=== PATIENT | female | born 1970 | race African-American/Black ===

== ENCOUNTER 2016-07-27 12:47 | Emergency (ER) | payer MEDICAID, OTHER ==
[2016-07-27 13:13] VITALS: BP 144/98
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
--- NOTE | 2016-07-27 16:29 | RAD ---
INDICATION: Left knee pain COMPARISON: None TECHNIQUE: AP, lateral, tunnel, and sunrise views were obtained. FINDINGS: The bony structures, joint spaces, and soft tissues are normal for age. IMPRESSION: THE EXAMINATION IS NORMAL FOR AGE
--- NOTE | 2016-07-27 16:39 | RAD ---
INDICATION: Back pain COMPARISON: None TECHNIQUE: Routine PA, lateral, and oblique imaging was performed . FINDINGS: Bones: There are no acute bony findings. There are no significant osteoarthritic findings. Alignment: Normal Disc spaces: The disc spaces are well-maintained Soft tissues: There are no soft tissue abnormalities. IMPRESSION: THE EXAMINATION IS NORMAL FOR AGE.
== END 2016-07-27 17:24 | disposition home or self-care (01) ==
LOC: UCEAST 12:47
DX: M25.562 Pain in left knee (principal); S39.012A Strain of muscle, fascia and tendon of lower back, initial encounter; V49.59XA Passenger injured in collision with other motor vehicles in traffic accident, initial encounter; Y93.9 Activity, unspecified; Y92.9 Unspecified place or not applicable; Z88.6 Allergy status to analgesic agent; F17.210 Nicotine dependence, cigarettes, uncomplicated
CPT/HCPCS: 72110; 99212; G0463

== ENCOUNTER 2016-07-31 11:11 | Emergency (ER) | payer SELFPAY ==
[2016-07-31 12:56] VITALS: BP 183/97
[2016-07-31] MEDS ORDERED: Nicotine PATCH 7 MG/24 HR* PATCH TRANSDERM ONE (14:52)
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
[2016-07-31 15:33] LABS: BUN/Creatinine Ratio 16.3 (8-20); Calcium 9.8 mg/dL (8.6-10.3); EGFR African American 90.6 (>60); EGFR Non-African American 70.4 (>60); Potassium 3.4 mmol/L (3.5-5.0)
[2016-07-31] MEDS ORDERED: Iohexol 300* (CONTRAST) 10 ML SDV IV ONE (15:37)
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
== END 2016-07-31 16:30 | disposition home or self-care (01) ==
LOC: ED 11:11
DX: S29.012A Strain of muscle and tendon of back wall of thorax, initial encounter (principal); S39.012A Strain of muscle, fascia and tendon of lower back, initial encounter; M54.9 Dorsalgia, unspecified; M25.561 Pain in right knee; R51 Headache; V49.9XXA Car occupant (driver) (passenger) injured in unspecified traffic accident, initial encounter; Y93.9 Activity, unspecified; Y92.9 Unspecified place or not applicable
CPT/HCPCS: 36415; 70450; 71260; 72100; 72128; 80048; 99282; Q9967

== ENCOUNTER → 2016-10-14 13:43 | Emergency (ER) | payer MEDICAID ==
[2016-10-14 14:37] LABS: Hematocrit 45 % (35-47); Hemoglobin 14.6 g/dl (12.0-16.0); Mean Corpuscular HGB Conc 33 g/dl (31-36); Mean Corpuscular Hemoglobin 28 pg (27-31); Mean Corpuscular Volume 87 fL (80-97); Mean Platelet Volume 8 um3 (7.4-10.4); Red Blood Count 5.15 10^6/ul (4.0-5.4); Red Cell Distribution Width 15 % (10.5-15); White Blood Count 7.7 10^3/ul (3.5-10.8)
[2016-10-14 14:41] LABS: Urine Bacteria Absent (Absent); Urine Bilirubin Negative (Negative); Urine Glucose Negative (Negative); Urine Nitrite Negative (Negative)
[2016-10-14 14:46] LABS: Benzodiazepine Urine Screen None Detected (None Detect)
[2016-10-14 14:58] LABS: ALT 16 U/L (7-52); AST 24 U/L (13-39); Albumin 4.9 g/dL (3.2-5.2); Alkaline Phosphatase 59 U/L (34-104); Anion Gap 11 mmol/L (2-11); BUN/Creatinine Ratio 22.8 (8-20); Blood Urea Nitrogen 21 mg/dL (6-24); CO2 Carbon Dioxide 27 mmol/L (22-32); Calcium 10.7 mg/dL (8.6-10.3); Chloride 103 mmol/L (101-111); EGFR African American 83.8 (>60); EGFR Non-African American 65.2 (>60); Globulin 3.3 g/dL (2-4); Glucose 134 mg/dL (70-100); Potassium 3.5 mmol/L (3.5-5.0); Sodium 141 mmol/L (133-145); Total Protein 8.2 g/dL (6.4-8.9)
[2016-10-14 15:19] LABS: Acetaminophen < 15 mcg/mL; Alcohol < 10 mg/dL (<10); Salicylate < 2.50 mg/dL (<30)
[2016-10-14 15:27] LABS: TSH (Thyroid Stimulating Horm) 0.57 mcIU/mL (0.34-5.60)
[2016-10-14 17:18] VITALS: BP 173/91
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
== END | disposition home or self-care (01) ==
LOC: ED 13:43
DX: F32.9 Major depressive disorder, single episode, unspecified (principal); R45.851 Suicidal ideations; F17.210 Nicotine dependence, cigarettes, uncomplicated
CPT/HCPCS: 36415; 80053; 80307; 80320; 80329; 81003; 81015; 84443; 85025; 99284; G0480

== ENCOUNTER 2016-11-03 15:37 | Emergency (ER) | payer MEDICAID, OTHER ==
[2016-11-03 15:45] VITALS: BP 156/92
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
== END 2016-11-03 17:22 | disposition home or self-care (01) ==
LOC: UCEAST 15:37
DX: N76.6 Ulceration of vulva (principal); Z72.0 Tobacco use
CPT/HCPCS: 81003; 87070; 87529; 99212; G0463

== ENCOUNTER 2016-11-27 11:26 | Emergency (ER) | payer MEDICAID ==
[2016-11-27 13:28] VITALS: BP 110/70
--- NOTE | 2016-11-27 15:27 | UC ---
Neck Pain HPI - HPI Summary HPI Summary: Patient presents with neck pain which is chronic from 4 herniated discs, acute diarrhea and intermittent fevers. She states upon wakening her temp will be 101 , but dissipates quickly and she is OK throughout the day. She is tearful on exam and would like information for HIV testing. This is given to her upon discharge. She notes to trying to gain weight and has been drinking ensures frequently. She has not taken anything for the neck pain and her surgeon is Dr. White in [facility]. - History of Current Complaint Chief Complaint: UCGI Stated Complaint: fever, and diarrhea Time Seen by Provider: 11/27/16 13:52 Hx Obtained From: Patient Hx Last Menstrual Period: HYSTERECTOMY ?: No Onset/Duration Of Injury/Symptoms: Minutes Mechanism Of Injury: Blunt Trauma Timing: Constant Onset/Duration: Sudden Onset Severity: Moderate Pain Intensity: 6 Pain Scale Used: 0-10 Numeric Location: Discrete At: - C2-C7 Character: Dull, Aching Alleviating Factors: Nothing Associated Signs & Symptoms: Positive: Negative Related History: Previous Neck Injury - Risk Factors Meningitis Risk Factors: Negative Risk Factors For Cervical Spine Injury: Posterior Midline Cervical Spine Tenderness - Allergies/Home Medications Allergies/Adverse Reactions: Allergies Allergy/AdvReac Type Severity Reaction Status Date / Time Aspirin Allergy Swelling Verified 11/03/16 15:46 PMH/Surg Hx/FS Hx/Imm Hx Previously Healthy: Yes Other History Of: Negative For: HIV, Hepatitis B, Hepatitis C, Anticoagulant Therapy - Surgical History Surgical History: Yes Surgery Procedure, Year, and Place: HYSTERECTOMY-FULL. C5-6 ACDF-09/13/15. TUBES IN EARS - Family History Known Family History: Positive: None - denies heart disease, or dm, Other - BREAST CA, mom and dad of AIDS Negative: Cardiac Disease, Hypertension, Diabetes - Social History Occupation: Unemployed Lives: Alone Alcohol Use: None Substance Use Type: None Smoking Status (MU): Light Every Day Tobacco Smoker Amount Used/How Often: 3-5cig/day Review Of Systems Constitutional: Positive: Fever Skin: Positive: Negative Respiratory: Positive: Negative Cardiovascular: Positive: Negative Gastrointestinal: Positive: Diarrhea Musculoskeletal: Positive: Arthralgia Neurological: Positive: Negative Psychological: Positive: Anxious All Other Systems Reviewed And Are Negative: Yes Physical Exam Triage Information Reviewed: Yes Appearance: Well-Appearing, No Pain Distress, Well-Nourished Vital Signs: Initial Vital Signs Temp 98.6 F 11/27/16 11:29 Pulse 70 11/27/16 11:29 Resp 18 11/27/16 11:29 BP 120/78 11/27/16 11:29 Pulse Ox 100 11/27/16 11:29 Vital Signs Reviewed: Yes Eye Exam: Normal Eyes: Positive: Conjunctiva Clear Neck exam: Normal Neck: Positive: Supple, Nontender, No Lymphadenopathy Respiratory Exam: Normal Respiratory: Positive: Chest non-tender, Lungs clear Neurological Exam: Normal Neurological: Positive: Alert, Muscle Tone Normal Psychological Exam: Normal Psychological: Positive: Normal Response To Family, Age Appropriate Behavior Skin Exam: Normal Neck Pain Course/Dx - Course Course Of Treatment: Patient given information for HIV testing. Explained acute diarrhea most likely d/t beginning ensure several days ago. She is given flexeril for neck pain and mobic. Patient OK with discharge. - Differential Dx/Diagnosis Differential Dx/HQI/PQRI: Sprain, Strain, Trauma Provider Diagnoses: muscle strain Discharge - Discharge Plan Condition: Stable Disposition: HOME Prescriptions: Cyclobenzaprine TAB* [Flexeril TAB*] 10 mg PO BID PRN #15 tab PRN Reason: Pain Meloxicam [Mobic] 15 mg PO DAILY #30 tab Patient Education Materials: Acute Diarrhea (ED), Acute Neck Pain (ED) Referrals: Conrado Kruse MD [Medical Doctor] - Endy Uriarte DO [Primary Care Provider] - Additional Instructions: Follow [facility] with PCP [facility] I have given you a referral to Dr. Kruse for further evaluation of neck pain Moist heat to the area [facility] Address: [address] [place] [address]
== END 2016-11-27 14:28 | disposition home or self-care (01) ==
LOC: UCEAST 11:26
DX: S13.9XXA Sprain of joints and ligaments of unspecified parts of neck, initial encounter (principal); R19.7 Diarrhea, unspecified; R50.9 Fever, unspecified
CPT/HCPCS: 99212; G0463

== ENCOUNTER 2017-03-19 05:34 | Emergency (ER) | payer MEDICAID ==
[2017-03-19] MEDS ORDERED: Ondansetron INJ* 2 MG/ML VIAL IV ONE (06:18)
[2017-03-19] MEDS ORDERED: NS 0.9% 1000 ML* 2,000 ML IV ONE (06:19)
[2017-03-19 06:36] LABS: Hematocrit 42 % (35-47); Mean Corpuscular HGB Conc 34 g/dl (31-36); Mean Corpuscular Hemoglobin 30 pg (27-31); Mean Corpuscular Volume 89 fL (80-97); Mean Platelet Volume 8 um3 (7.4-10.4); Red Cell Distribution Width 14 % (10.5-15); White Blood Count 10.1 10^3/ul (3.5-10.8)
[2017-03-19 06:48] LABS: Urine Bacteria Absent (Absent); Urine Bilirubin Negative (Negative); Urine Glucose Negative (Negative); Urine Nitrite Negative (Negative)
[2017-03-19 06:49] LABS: Albumin 4.4 g/dL (3.2-5.2); BUN/Creatinine Ratio 16.3 (8-20); Calcium 9.9 mg/dL (8.6-10.3); EGFR African American 90.6 (>60); EGFR Non-African American 70.4 (>60); Globulin 2.9 g/dL (2-4); Magnesium 1.9 mg/dL (1.9-2.7); Potassium 3.4 mmol/L (3.5-5.0); Total Bilirubin 0.4 mg/dL (0.2-1.0); Total Protein 7.3 g/dL (6.4-8.9)
[2017-03-19 07:06] VITALS: BP 180/140
--- NOTE | 2017-03-19 07:40 | ED ---
Refugio Akers Rebecca, scribed for Rafiq Boyle MD on 03/19/17 at 0607 . Abdominal Pain/Female - HPI Summary HPI Summary: Pt is a 46 y/o F who presents to ED c/o abdominal pain. Sx began yesterday afternoon and have been constant and unchanging since onset. Prior to onset of pain, she had a roast beef sub which she ate really quickly. Pain is in the umbilical region and is currently severe, ranked 8/10. Pain stays localized to the same region. Sx aggravated by nothing, alleviated by belching. Additionally c/o N/V/D, citing 6 episodes of emesis and diarrhea every 30 minutes since onset. Denies dysuria, fever, blood in stool. - History of Current Complaint Chief Complaint: EDAbdPain Stated Complaint: VOMITIN, DIARRHEA Hx Obtained From: Patient Hx Last Menstrual Period: HYSTERECTOMY Onset/Duration: Lasting Days - Yesterday afternoon, Still Present Severity Currently: Severe Pain Intensity: 8 Pain Scale Used: 0-10 Numeric Location: Umbilical Radiates: No Aggravating Factor(s): Nothing Alleviating Factor(s): Other: - Belching Associated Signs and Symptoms: Positive: Nausea, Vomiting, Diarrhea. Negative: Fever, Blood in Stool, Urinary Symptoms Allergies/Adverse Reactions: Allergies Allergy/AdvReac Type Severity Reaction Status Date / Time Aspirin Allergy Swelling Verified 03/19/17 05:43 PMH/Surg Hx/FS Hx/Imm Hx Endocrine/Hematology History: Denies: Hx Anticoagulant Therapy, Hx Blood Disorders, Hx Diabetes, Hx Thyroid Disease, Hx Unexplained Bleeding Cardiovascular History: Reports: Hx Hypertension - No Meds Denies: Hx Congestive Heart Failure, Hx Deep Vein Thrombosis, Hx Myocardial Infarction, Hx Pacemaker/ICD Respiratory History: Denies: Hx Asthma, Hx Chronic Obstructive Pulmonary Disease (COPD), Hx Lung Cancer, Hx Pneumonia, Hx Pulmonary Embolism GI History: Denies: Hx Gall Bladder Disease, Hx Gastrointestinal Bleed, Hx Ulcer, Hx Urosepsis History: Denies: Hx Kidney Stones, Hx Renal Disease Musculoskeletal History: Reports: Hx Arthritis Neurological History: Denies: Hx Dementia, Hx Migraine, Hx Seizures, Hx Transient Ischemic Attacks (TIA) Psychiatric History: Reports: Hx Anxiety - She takes a, Hx Depression - She is not on medications for her mental health issues> Denies: Hx Schizophrenia, Hx Bipolar Disorder, Hx of Violent Episodes Against Others - Surgical History Surgery Procedure, Year, and Place: HYSTERECTOMY-FULL. C5-6 ACDF-09/13/15. TUBES IN EARS Infectious Disease History: No Infectious Disease History: Denies: Traveled Outside the [place] in Last 30 Days - Family History Known Family History: Positive: Other - BREAST CA, mom and dad of AIDS Negative: Cardiac Disease, Hypertension, Diabetes - Social History Alcohol Use: None Hx Substance Use: No Substance Use Type: Reports: None Hx Tobacco Use: Yes Smoking Status (MU): Light Every Day Tobacco Smoker Amount Used/How Often: 3-5cig/day Review of Systems Negative: Fever Positive: Abdominal Pain, Vomiting, Diarrhea, Nausea Positive: other - NEGATIVE: Blood in stool. Negative: dysuria All Other Systems Reviewed And Are Negative: Yes Physical Exam - Summary Physical Exam Summary: Appearance: Well-appearing, Well-nourished Skin: Warm, no rashes, no petechiae Eyes: Normal ENT: Normal, moist mucous membranes Neck: Supple, nontender Respiratory: Clear to auscultation Cardiovascular: Normal Abdomen: Soft, audi tenderness in the epigastrum, no rebound, mild voluntary guarding Bowel: Present Musculoskeletal: Normal, Strength/ROM Intact, no CVA tenderness, normal pulses in the radial and pedal areas bilaterally Neurological: Normal, A&Ox3 Psychiatric: Appears anxious Triage Information Reviewed: Yes Vital Signs On Initial Exam: Initial Vitals Temp Pulse Resp BP Pulse Ox 98.1 F 79 16 170/94 100 03/19/17 05:40 03/19/17 05:40 03/19/17 05:40 03/19/17 05:40 03/19/17 05:40 Vital Signs Reviewed: Yes - Ezequiel Coma Scale Coma Scale Total: 15 Diagnostics - Vital Signs Vital Signs Temp Pulse Resp BP Pulse Ox 03/19/17 05:40 98.1 F 79 16 170/94 100 - Laboratory Lab Results: Lab Results 03/19/17 03/19/17 03/19/17 Range/Units 06:10 06:10 06:10 WBC 10.1 (3.5-10.8) 10^3/ul RBC 4.70 (4.0-5.4) 10^6/ul Hgb 14.0 (12.0-16.0) g/dl Hct 42 (35-47) % MCV 89 (80-97) fL MCH 30 (27-31) pg MCHC 34 (31-36) g/dl RDW 14 (10.5-15) % Plt Count 221 (150-450) 10^3/ul MPV 8 (7.4-10.4) um3 Neut % (Auto) 67.0 (38-83) % Lymph % (Auto) 25.4 (25-47) % Russell % (Auto) 7.0 (1-9) % Eos % (Auto) 0.3 (0-6) % Baso % (Auto) 0.3 (0-2) % Absolute Neuts (auto) 6.8 (1.5-7.7) 10^3/ul Absolute Lymphs (auto) 2.6 (1.0-4.8) 10^3/ul Absolute Monos (auto) 0.7 (0-0.8) 10^3/ul Absolute Eos (auto) 0 (0-0.6) 10^3/ul Absolute Basos (auto) 0 (0-0.2) 10^3/ul Absolute Nucleated RBC 0.01 10^3/ul Nucleated RBC % 0.1 INR (Anticoag Therapy) 0.88 L (0.89-1.11) APTT 28.0 (26.0-36.3) seconds Sodium 139 (133-145) mmol/L Potassium 3.4 L (3.5-5.0) mmol/L Chloride 106 (101-111) mmol/L Carbon Dioxide 27 (22-32) mmol/L Anion Gap 6 (2-11) mmol/L BUN 14 (6-24) mg/dL Creatinine 0.86 (0.51-0.95) mg/dL Est GFR ( Amer) 90.6 (>60) Est GFR (Non-Af Amer) 70.4 (>60) BUN/Creatinine Ratio 16.3 (8-20) Glucose 123 H (70-100) mg/dL Calcium 9.9 (8.6-10.3) mg/dL Magnesium 1.9 (1.9-2.7) mg/dL Total Bilirubin 0.40 (0.2-1.0) mg/dL AST 17 (13-39) U/L ALT 15 (7-52) U/L Alkaline Phosphatase 60 (34-104) U/L C-Reactive Protein 1.00 (< 5.00) mg/L Total Protein 7.3 (6.4-8.9) g/dL Albumin 4.4 (3.2-5.2) g/dL Globulin 2.9 (2-4) g/dL Albumin/Globulin Ratio 1.5 (1-3) Amylase 55 (29-103) U/L Lipase 30 (11.0-82.0) U/L Beta HCG, Quant 4.77 mIU/mL Urine Color Urine Appearance Urine pH (5-9) Ur Specific [place] (1.010-1.030) Urine Protein (Negative) Urine Ketones (Negative) Urine Blood (Negative) Urine Nitrate (Negative) Urine Bilirubin (Negative) Urine Urobilinogen (Negative) Ur Leukocyte Esterase (Negative) Urine WBC (Auto) (Absent) Urine RBC (Auto) (Absent) Ur Squamous Epith Cells (Absent) Urine Bacteria (Absent) Urine Glucose (Negative) Blood Type Antibody Screen 03/19/17 03/19/17 Range/Units 06:10 06:10 WBC (3.5-10.8) 10^3/ul RBC (4.0-5.4) 10^6/ul Hgb (12.0-16.0) g/dl Hct (35-47) % MCV (80-97) fL MCH (27-31) pg MCHC (31-36) g/dl RDW (10.5-15) % Plt Count (150-450) 10^3/ul MPV (7.4-10.4) um3 Neut % (Auto) (38-83) % Lymph % (Auto) (25-47) % Russell % (Auto) (1-9) % Eos % (Auto) (0-6) % Baso % (Auto) (0-2) % Absolute Neuts (auto) (1.5-7.7) 10^3/ul Absolute Lymphs (auto) (1.0-4.8) 10^3/ul Absolute Monos (auto) (0-0.8) 10^3/ul Absolute Eos (auto) (0-0.6) 10^3/ul Absolute Basos (auto) (0-0.2) 10^3/ul Absolute Nucleated RBC 10^3/ul Nucleated RBC % INR (Anticoag Therapy) (0.89-1.11) APTT (26.0-36.3) seconds Sodium (133-145) mmol/L Potassium (3.5-5.0) mmol/L Chloride (101-111) mmol/L Carbon Dioxide (22-32) mmol/L Anion Gap (2-11) mmol/L BUN (6-24) mg/dL Creatinine (0.51-0.95) mg/dL Est GFR ( Amer) (>60) Est GFR (Non-Af Amer) (>60) BUN/Creatinine Ratio (8-20) Glucose (70-100) mg/dL Calcium (8.6-10.3) mg/dL Magnesium (1.9-2.7) mg/dL Total Bilirubin (0.2-1.0) mg/dL AST (13-39) U/L ALT (7-52) U/L Alkaline Phosphatase (34-104) U/L C-Reactive Protein (< 5.00) mg/L Total Protein (6.4-8.9) g/dL Albumin (3.2-5.2) g/dL Globulin (2-4) g/dL Albumin/Globulin Ratio (1-3) Amylase (29-103) U/L Lipase (11.0-82.0) U/L Beta HCG, Quant mIU/mL Urine Color Yellow Urine Appearance Clear Urine pH 6.0 (5-9) Ur Specific [place] 1.010 (1.010-1.030) Urine Protein Negative (Negative) Urine Ketones Negative (Negative) Urine Blood 2+ H (Negative) Urine Nitrate Negative (Negative) Urine Bilirubin Negative (Negative) Urine Urobilinogen Negative (Negative) Ur Leukocyte Esterase Negative (Negative) Urine WBC (Auto) Trace(0-5/hpf) (Absent) Urine RBC (Auto) Trace(0-2/hpf) (Absent) Ur Squamous Epith Cells Present H (Absent) Urine Bacteria Absent (Absent) Urine Glucose Negative (Negative) Blood Type B Positive Antibody Screen Negative Result Diagrams: 03/19/17 06:10 03/19/17 06:10 Lab Statement: Any lab studies that have been ordered have been reviewed, and results considered in the medical decision making process. Abdominal Pain Fem Course/Dx - Course Course Of Treatment: feels better after meds, instructed to fu with pmd. agrees to and understnad dc instructions - Diagnoses Provider Diagnoses: Diarrhea Discharge - Discharge Plan Condition: Improved Disposition: HOME Prescriptions: Ondansetron ODT TAB* [Zofran 4 MG Odt TAB*] 4 mg PO Q6H PRN #12 tab.odt PRN Reason: Nausea Patient Education Materials: Gastroenteritis (ED), Acute Nausea and Vomiting ( ED) Additional Instructions: PLEASE MAKE AN APPOINTMENT FIRST THING IN THE MORNING TO BE SEEN BY YOUR PRIMARY CARE DOCTOR WITHIN 1 WEEK PLEASE RETURN TO THE EMERGENCY ROOM IF YOU HAVE ANY WORSENING OR CONCERNING SYMPTOMS The documentation as recorded by the Refugio angel Rebecca accurately reflects the service I personally performed and the decisions made by me, Rafiq Boyle MD.
--- NOTE | 2017-03-19 08:10 | RAD ---
HISTORY: Abdominal pain COMPARISONS: None VIEWS: Frontal views of the abdomen. FINDINGS: BOWEL: There is a nonspecific bowel gas pattern, with nondilated small bowel gas noted. There is minimal stool within the colon. CALCULI: There are no abnormal calculi. BONES AND SOFT TISSUES: There are no osseous abnormalities. The hepatic parenchymal shadow measures 22 cm in long axis. OTHER FINDINGS: The lung bases are clear. There is no subphrenic gas. IMPRESSION: HEPATOMEGALY. NONSPECIFIC BOWEL GAS PATTERN.
== END 2017-03-19 08:00 | disposition home or self-care (01) ==
LOC: ED 05:34
DX: R19.7 Diarrhea, unspecified (principal); F17.210 Nicotine dependence, cigarettes, uncomplicated; F41.9 Anxiety disorder, unspecified; R16.0 Hepatomegaly, not elsewhere classified
CPT/HCPCS: 36415; 74000; 80053; 81003; 81015; 82150; 83690; 83735; 84702; 85025; 85610; 85730; 86140; 86850; 86900; 86901; 96360; 96374; 99282; J2405

== ENCOUNTER 2017-09-20 18:17 | Emergency (ER) | payer MEDICAID ==
[2017-09-20] MEDS ORDERED: Dexamethasone TAB* 4 MG PO ONE (20:55)
[2017-09-20] MEDS ORDERED: Diazepam TAB(*) 5 MG PO ONE (20:55)
--- NOTE | 2017-09-20 20:58 | ED ---
Neck Pain - HPI Summary HPI Summary: 47-year-old female presents to neck pain for the past 9 days. She has history of neck pain in the same location. States she used to get injections in her neck which helped but she moved so she has not had them anymore. She states she has had neck surgery 3 years ago. She denies any fevers. She denies any weakness. She denies any numbness or tingling in her arms. She has been using Flexeril and ibuprofen without relief. States she is been stuck in bed due to the pain. She states there is a stiffness. She denies any other pain. Pain is greatest on the sides of her neck. She denies any new injury. She denies any fevers or headache. - History of Current Complaint Chief Complaint: EDNeckComplaint Stated Complaint: NECK PAIN Time Seen by Provider: 09/20/17 20:07 Hx Last Menstrual Period: HYSTERECTOMY Pain Intensity: 8 - Allergies/Home Medications Allergies/Adverse Reactions: Allergies Allergy/AdvReac Type Severity Reaction Status Date / Time aspirin Allergy Swelling Verified 09/20/17 18:33 Of Face,Lips,& Throat PMH/Surg Hx/FS Hx/Imm Hx Endocrine/Hematology History: Denies: Hx Anticoagulant Therapy, Hx Blood Disorders, Hx Diabetes, Hx Thyroid Disease, Hx Unexplained Bleeding Cardiovascular History: Reports: Hx Hypertension - No Meds Denies: Hx Congestive Heart Failure, Hx Deep Vein Thrombosis, Hx Myocardial Infarction, Hx Pacemaker/ICD Respiratory History: Denies: Hx Asthma, Hx Chronic Obstructive Pulmonary Disease (COPD), Hx Lung Cancer, Hx Pneumonia, Hx Pulmonary Embolism GI History: Denies: Hx Gall Bladder Disease, Hx Gastrointestinal Bleed, Hx Ulcer, Hx Urosepsis History: Denies: Hx Kidney Stones, Hx Renal Disease Musculoskeletal History: Reports: Hx Arthritis Neurological History: Denies: Hx Dementia, Hx Migraine, Hx Seizures, Hx Transient Ischemic Attacks (TIA) Psychiatric History: Reports: Hx Anxiety - She takes a, Hx Depression - She is not on medications for her mental health issues> Denies: Hx Schizophrenia, Hx Bipolar Disorder, Hx of Violent Episodes Against Others - Surgical History Surgery Procedure, Year, and Place: HYSTERECTOMY-FULL. C5-6 ACDF-09/13/15. TUBES IN EARS Infectious Disease History: No Infectious Disease History: Denies: Traveled Outside the [place] in Last 30 Days - Family History Known Family History: Positive: None - denies heart disease, or dm, Other - BREAST CA, mom and dad of AIDS Negative: Cardiac Disease, Hypertension, Diabetes - Social History Alcohol Use: None Hx Substance Use: No Substance Use Type: Reports: None Hx Tobacco Use: Yes Smoking Status (MU): Light Every Day Tobacco Smoker Amount Used/How Often: 3-5cig/day Review of Systems Negative: Fever Negative: Chest Pain Negative: Shortness Of Breath Positive: Myalgia - neck pain All Other Systems Reviewed And Are Negative: Yes Physical Exam Triage Information Reviewed: Yes Vital Signs On Initial Exam: Initial Vitals Temp Pulse Resp BP Pulse Ox 99.4 F 88 16 182/103 100 09/20/17 18:28 09/20/17 18:28 09/20/17 18:28 09/20/17 18:28 09/20/17 18:28 Vital Signs Reviewed: Yes Appearance: Positive: Well-Appearing Skin: Positive: Warm, Dry Head/Face: Positive: Normal Head/Face Inspection Eyes: Positive: Normal, Conjunctiva Clear Respiratory/Lung Sounds: Positive: Clear to Auscultation, Breath Sounds Present Cardiovascular: Positive: Normal, RRR Musculoskeletal: Positive: Strength/ROM Intact - Neck, Other - No midline tenderness neck, tenderness at neck, full range of motion arms, good pulses, good test architect strength, Neurological: Positive: Reflexes Intact - Biceps Psychiatric: Positive: Normal Diagnostics - Vital Signs Vital Signs Temp Pulse Resp BP Pulse Ox 09/20/17 18:28 99.4 F 88 16 182/103 100 - Laboratory Lab Statement: Any lab studies that have been ordered have been reviewed, and results considered in the medical decision making process. Neck Course/Dx - Course Course Of Treatment: 47-year-old female presents to neck pain for the past 9 days. She has history of neck pain in the same location. States she used to get injections in her neck which helped but she moved so she has not had them anymore. She states she has had neck surgery 3 years ago. She denies any fevers. She denies any weakness. She denies any numbness or tingling in her arms. She has been using Flexeril and ibuprofen without relief. States she is been stuck in bed due to the pain. She states there is a stiffness. She denies any other pain. Pain is greatest on the sides of her neck. She denies any new injury. She denies any fevers or headache. On exam tenderness or signs of neck. No midline tenderness. Full range of motion neck. Good arm strength. Neurovascular intact. We will treat with Robaxin and Medrol pack. Told to follow up primary. Patient understands agrees with plan. - Diagnoses Differential Dx/HQI/PQRI: Positive: Arthritis, Sprain, Strain Provider Diagnoses: Neck pain Discharge - Sign-Out/Discharge Documenting (check all that apply): Discharge/Admit/Transfer - Discharge Plan Condition: Good Disposition: HOME Patient Education Materials: Neck Pain (ED) Referrals: Non Staff,Doctor [Primary Care Provider] [place] [facility] [place],PT [Medical Doctor] - Additional Instructions: Follow directions on package for Medrol pack Take muscle relaxers three times a day, stop flexeril Use ibuprofen or Tylenol for pain every 6 hours ice/heat area, move as much as possible Follow up with primary within 5 days Return to ED if develop any new or worsening symptoms - Billing Disposition and Condition Condition: GOOD Disposition: HOME
[2017-09-20 21:37] VITALS: BP 183/118
[2017-09-20] MEDS ORDERED: cloNIDine TAB* 0.1 MG PO ONE (21:38)
== END 2017-09-20 21:36 | disposition home or self-care (01) ==
LOC: ED 18:17
DX: M54.2 Cervicalgia (principal); F17.210 Nicotine dependence, cigarettes, uncomplicated
CPT/HCPCS: 99282; A9270-GY; J8540

== ENCOUNTER 2017-10-07 12:24 | Emergency (ER) | payer MEDICAID ==
[2017-10-07 12:46] VITALS: BP 168/97
--- NOTE | 2017-10-07 13:04 | UC ---
Throat Pain/Nasal Heriberto HPI - HPI Summary HPI Summary: 47 year old female with concerns. had injections into cervical spine area and felt dizzy has a funny taste in her mouth and her tongue feels numb. no problems breathing. start SSRI recently and that was new . no CP. no palpitations. was worried with the numbness sensation in the back of the tongue so she came here. no lip swelling. no dizziness. neck does feel better after the trigger point injections [ End ] - History of Current Complaint Chief Complaint: UCGeneralIllness Stated Complaint: SWOLLEN MOUTH Time Seen by Provider: 10/07/17 12:32 Hx Obtained From: Patient, Family/Stars Specialist Hx Last Menstrual Period: HYSTERECTOMY ?: No Onset/Duration: Sudden Onset Pain Intensity: 0 - Allergies/Home Medications Allergies/Adverse Reactions: Allergies Allergy/AdvReac Type Severity Reaction Status Date / Time aspirin Allergy Swelling Verified 09/20/17 18:33 Of Face,Lips,& Throat PMH/Surg Hx/FS Hx/Imm Hx Previously Healthy: Yes Psychological History: Anxiety, Depression Other History Of: Negative For: HIV, Hepatitis B, Hepatitis C, Anticoagulant Therapy - Surgical History Surgical History: Yes Surgery Procedure, Year, and Place: HYSTERECTOMY-FULL. C5-6 ACDF-09/13/15. TUBES IN EARS - Family History Known Family History: Positive: None - denies heart disease, or dm, Other - BREAST CA, mom and dad of AIDS Negative: Cardiac Disease, Hypertension, Diabetes - Social History Occupation: Unemployed Alcohol Use: None Substance Use Type: None Smoking Status (MU): Light Every Day Tobacco Smoker Amount Used/How Often: 3-5cig/day Review of Systems ENT: Other - tongue numvbness Is Patient Immunocompromised?: No All Other Systems Reviewed And Are Negative: Yes Physical Exam Triage Information Reviewed: Yes Appearance: Well-Appearing, No Pain Distress, Well-Nourished Vital Signs: Initial Vital Signs Temp 98.6 F 10/07/17 12:44 Pulse 76 10/07/17 12:44 Resp 16 10/07/17 12:44 BP 168/97 10/07/17 12:44 Pulse Ox 98 10/07/17 12:44 Vital Signs Reviewed: Yes Eye Exam: Normal ENT Exam: Normal Dental Exam: Normal Neck exam: Normal Neck: Positive: 1 Respiratory Exam: Normal Cardiovascular Exam: Normal Musculoskeletal Exam: Normal Neurological Exam: Normal Psychological Exam: Normal Skin Exam: Normal Throat Pain/Nasal Course/Dx - Course Course Of Treatment: after waiting in the for about 30 min the Sx improved. still with some numbness in posterior tongue. no swelling no angioedema. give one benadryl to see if helps Sx. RTO if any concerns. no acute concerns - Differential Dx/Diagnosis Provider Diagnoses: tongue numbness. hypertension : due to urgent care setting Discharge - Sign-Out/Discharge Documenting (check all that apply): Discharge/Admit/Transfer - Discharge Plan Condition: Good Disposition: HOME Patient Education Materials: Paresthesia (ED) Referrals: Non Staff,Doctor [Primary Care Provider] - 4 Days Additional Instructions: If your symptoms worsen please seek medical attn - Billing Disposition and Condition Condition: GOOD Disposition: HOME
[2017-10-07] MEDS ORDERED: diPHENhydraMINE PO* 25 MG PO ONE (13:05)
== END 2017-10-07 13:15 | disposition home or self-care (01) ==
LOC: UCEAST 12:24
DX: R20.0 Anesthesia of skin (principal); I10 Essential (primary) hypertension; F17.210 Nicotine dependence, cigarettes, uncomplicated; Z88.6 Allergy status to analgesic agent
CPT/HCPCS: 99212; A9270-GY; G0463

== ENCOUNTER 2017-11-19 12:28 | Emergency (ER) | payer MEDICAID, OTHER ==
[2017-11-19 12:37] VITALS: BP 156/94
--- NOTE | 2017-11-19 14:11 | UC ---
Alvaro Akers Gabriel, scribed for Hung Aguilar MD on 11/19/17 at 1251 . Dental HPI - HPI Summary HPI Summary: This patient is a 47 year old F presenting to [facility] [place] with a chief complaint of dental pain in the lower jaw that began 4 days ago. The patient rates the pain 7 /10 in severity. Patient reports left sided facial pain. Pt denies fever. She has a dentist appointment in two weeks. - History of Current Complaint Chief Complaint: UCDentalProblem Stated Complaint: TOOTH ACHE AND L EAR PAIN Time Seen by Provider: 11/19/17 12:47 Hx Obtained From: Patient Hx Last Menstrual Period: hyster Onset/Duration: Lasting Days - 4, Still Present Severity: Severe Pain Intensity: 7 Pain Scale Used: 0-10 Numeric - Allergies/Home Medications Allergies/Adverse Reactions: Allergies Allergy/AdvReac Type Severity Reaction Status Date / Time aspirin Allergy Swelling Verified 11/19/17 12:37 Of Face,Lips,& Throat Home Medications: Home Medications Spironolactone-Hctz 25-25 Tab 1 tab PO DAILY 11/19/17 [History Confirmed ] amLODIPine TAB* [Norvasc 5 mg TAB*] 5 mg PO DAILY 11/19/17 [History Confirmed ] PMH/Surg Hx/FS Hx/Imm Hx Cardiovascular History: Hypertension Other History Of: Negative For: HIV, Hepatitis B, Hepatitis C, Anticoagulant Therapy - Surgical History Surgical History: Yes Surgery Procedure, Year, and Place: HYSTERECTOMY-FULL. C5-6 ACDF-09/13/15. TUBES IN EARS - Family History Known Family History: Positive: None - denies heart disease, or dm, Other - BREAST CA, mom and dad of AIDS Negative: Cardiac Disease, Hypertension, Diabetes - Social History Alcohol Use: None Substance Use Type: None Smoking Status (MU): Light Every Day Tobacco Smoker Amount Used/How Often: 3-5cig/day Review of Systems Constitutional: Negative - fever ENT: Dental Pain Musculoskeletal: Other: - left sided facial pain All Other Systems Reviewed And Are Negative: Yes Physical Exam - Summary Physical Exam Summary: General: well-appearing, no pain distress Skin: warm, color reflects adequate perfusion, dry Head: normal Eyes: EOMI, RADHA ENT: left lower molar with caries and gingival swelling Neck: supple, nontender Respiratory: CTA, breath sounds present Cardiovascular: RRR Abdomen: soft, nontender Bowel: present Musculoskeletal: normal, strength/ROM intact Neurological: sensory/motor intact, A&O x3 Psychological: affect/mood appropriate Triage Information Reviewed: Yes Vital Signs: Initial Vital Signs Temp 98 F 11/19/17 12:34 Pulse 74 11/19/17 12:34 Resp 15 11/19/17 12:34 BP 156/94 11/19/17 12:34 Pulse Ox 100 11/19/17 12:34 Vital Signs Reviewed: Yes Dental Complaint Course/Dx - Course Course Of Treatment: BP noted and advised to follow up with PCP. Medications reviewed. Allergies noted. - Differential Dx/Diagnosis Provider Diagnoses: DENTAL INFECTION. HTN Discharge - Sign-Out/Discharge Documenting (check all that apply): Discharge/Admit/Transfer - Discharge Plan Condition: Stable Disposition: HOME Prescriptions: HYDROcodone/ACETAMIN 5-325 MG* [[place] 5-325 TAB*] 1 tab PO Q4H PRN #20 tab MDD 6 PRN Reason: Pain Penicillin VK 500 MG TAB(NF) [Penicillin VK 500 mg Tab] 500 mg PO QID #40 tab Patient Education Materials: Toothache (ED) Referrals: Henri Cowart MD [Primary Care Provider] - Additional Instructions: Your blood pressure was elevated during todays visit; please follow up with your primary care provider within a week for further evaluation. FOLLOW UP WITH YOUR DENTIST. GET RECHECKED FOR ANY WORSENING OF YOUR CONDITION OR QUESTIONS OR CONCERNS. - Billing Disposition and Condition Condition: STABLE Disposition: Home The documentation as recorded by the Alvaro angel Gabriel accurately reflects the service I personally performed and the decisions made by me, Hung Aguilar MD.
== END 2017-11-19 13:19 | disposition home or self-care (01) ==
LOC: UCEAST 12:28
DX: K04.7 Periapical abscess without sinus (principal); I10 Essential (primary) hypertension; Z88.6 Allergy status to analgesic agent; F17.210 Nicotine dependence, cigarettes, uncomplicated
CPT/HCPCS: 99212; G0463

== ENCOUNTER 2018-01-13 18:33 | Emergency (ER) | payer MEDICAID ==
[2018-01-13] MEDS ORDERED: Cyclobenzaprine TAB* 10 MG PO ONE (19:42)
[2018-01-13] MEDS ORDERED: HYDROcodone/ACETAMIN 5-325 MG* 1 TAB PO ONE (19:42)
[2018-01-13] MEDS ORDERED: Naproxen TAB* 250 MG PO ONE (19:42)
--- NOTE | 2018-01-13 19:43 | ED ---
Throat Pain/Nasal Congestion - HPI Summary HPI Summary: The pt is a 47 year old female presenting to the ED with neck pain. Pt states she had arthritis in the same spot, making the pain worse. She states she had previous surgery on her neck in [facility]. She has a neck brace that she only wears when the pain acts up again, which is usually with weather changes. She went to [facility] about 3 months ago, where the physician gave her 6 shots in her neck. The pt had prescriptions for hydrocodone and another medication for swelling. Usually when she runs out of the med, she makes an appointment at [facility], but she has been out since yesterday so she came here. Pt states she is allergic to aspirin, uses [facility] pharmacy, is a smoker. Pt denies diabetes and a hx of diabetes. - History of Current Complaint Chief Complaint: EDPrescriptionNeeded Hx Obtained From: Patient Onset/Duration: Gradual Onset, Lasting Days Severity: Moderate Related History: Prior ENT Surgery - surgery on neck previously in [facility] - Allergies/Home Medications Allergies/Adverse Reactions: Allergies Allergy/AdvReac Type Severity Reaction Status Date / Time aspirin Allergy Swelling Verified 11/19/17 12:37 Of Face,Lips,& Throat PMH/Surg Hx/FS Hx/Imm Hx Previously Healthy: No Endocrine/Hematology History: Denies: Hx Anticoagulant Therapy, Hx Blood Disorders, Hx Diabetes, Hx Thyroid Disease, Hx Unexplained Bleeding Cardiovascular History: Reports: Hx Hypertension - No Meds Denies: Hx Congestive Heart Failure, Hx Deep Vein Thrombosis, Hx Myocardial Infarction, Hx Pacemaker/ICD Respiratory History: Denies: Hx Asthma, Hx Chronic Obstructive Pulmonary Disease (COPD), Hx Lung Cancer, Hx Pneumonia, Hx Pulmonary Embolism GI History: Denies: Hx Gall Bladder Disease, Hx Gastrointestinal Bleed, Hx Ulcer, Hx Urosepsis History: Denies: Hx Kidney Stones, Hx Renal Disease Musculoskeletal History: Reports: Hx Arthritis Neurological History: Denies: Hx Dementia, Hx Migraine, Hx Seizures, Hx Transient Ischemic Attacks (TIA) Psychiatric History: Reports: Hx Anxiety - She takes a, Hx Depression - She is not on medications for her mental health issues> Denies: Hx Schizophrenia, Hx Bipolar Disorder, Hx of Violent Episodes Against Others - Surgical History Surgery Procedure, Year, and Place: HYSTERECTOMY-FULL. C5-6 ACDF-09/13/15. TUBES IN EARS Infectious Disease History: No Infectious Disease History: Denies: Traveled Outside the [place] in Last 30 Days - Family History Known Family History: Positive: Other - BREAST CA, mom and dad of AIDS Negative: Cardiac Disease, Hypertension, Diabetes - Social History Alcohol Use: None Hx Substance Use: No Substance Use Type: Reports: None Hx Tobacco Use: Yes Smoking Status (MU): Light Every Day Tobacco Smoker Amount Used/How Often: 3-5cig/day Review of Systems Negative: Fever Positive: Other - neck pain All Other Systems Reviewed And Are Negative: Yes Physical Exam - Summary Physical Exam Summary: Appearance: Well appearing, no pain distress Skin: warm, dry, reflects adequate perfusion Head/face: normal Eyes: EOMI, RADHA ENT: normal Neck: supple, no neck tenderness Respiratory: CTA, breath sounds present Cardiovascular: RRR, pulses symmetrical Abdomen: non-tender, soft Bowel Sounds: present Musculoskeletal: normal, strength/ROM intact Neuro: normal, sensory motor intact, A&Ox3 Triage Information Reviewed: Yes Vital Signs On Initial Exam: Initial Vitals Temp Pulse Resp BP Pulse Ox 98.1 F 88 16 145/99 100 01/13/18 18:35 01/13/18 18:35 01/13/18 18:35 01/13/18 18:35 01/13/18 18:35 Vital Signs Reviewed: Yes Diagnostics - Vital Signs Vital Signs Temp Pulse Resp BP Pulse Ox 01/13/18 18:35 98.1 F 88 16 145/99 100 - Laboratory Lab Statement: Any lab studies that have been ordered have been reviewed, and results considered in the medical decision making process. EENT Course/Dx - Course Course Of Treatment: Patient with history of chronic pain who sees pain management and has run out of her hydrocodone. She is wearing a soft cervical collar. No tenderness on exam or limitation of range of motion. She is explained that she cannot be prescribed medication but would be given one here. 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 She was happy with this and is discharged in good condition. - Diagnoses Provider Diagnoses: Medication refill, Chronic midline posterior neck pain Discharge - Sign-Out/Discharge Documenting (check all that apply): Patient Departure - Discharge Plan Condition: Improved Disposition: HOME Prescriptions: Cyclobenzaprine (NF) [Cyclobenzaprine 5 MG (NF)] 5 mg PO TID PRN #12 tab PRN Reason: neck/muscle pain Patient Education Materials: Chronic Neck Pain (DC) Referrals: Henri Cowart MD [Primary Care Provider] - Additional Instructions: call your pain management doctor at [facility] in the morning to follow up. The ER cannot prescribe your pain medication. Return if worse or other concerns. - Billing Disposition and Condition Condition: IMPROVED Disposition: Home - Attestation Statements Document Initiated by Scribe: Yes Documenting Scribe: Verónica David Provider For Whom Sia is Documenting (Include Credential): Vaughn Clark MD. Scribe Attestation: Verónica Akers, scribed for Vaughn Clark MD. on 01/13/18 at 2004. Scribe Documentation Reviewed: Yes Provider Attestation: The documentation as recorded by the scribe, Verónica David accurately reflects the service I personally performed and the decisions made by , Vaughn Clark MD.
[2018-01-13 20:00] VITALS: BP 137/80
== END 2018-01-13 19:58 | disposition home or self-care (01) ==
LOC: ED 18:33
DX: M54.2 Cervicalgia (principal); F17.210 Nicotine dependence, cigarettes, uncomplicated; Z76.0 Encounter for issue of repeat prescription
CPT/HCPCS: 99282; A9270-GY

== ENCOUNTER 2018-03-08 18:49 | Emergency (ER) | payer MEDICAID, OTHER ==
[2018-03-08 19:28] VITALS: BP 167/109
--- NOTE | 2018-03-08 19:56 | UC ---
UC General HPI - HPI Summary HPI Summary: 47 yo female c/o last 3 weeks of progressive arthralgias. Thinks had a fever a few days ago. No rash. Arthralgias are diffuse, particularly notes in prox interph joints inf fingers and location of prior neck surgery. No sob / cp. No GI sx reported, except feels generally swollen. LMP 2009, perimenopausal. No cough. Appetite fair. No melenal / brpbr. Has taken ibuprofen, not helpful. + fatigue - hard to get out of bed. No recollection of tick bite. - History of Current Complaint Chief Complaint: UCGeneralIllness Stated Complaint: ACHES, AND NECK PAIN Hx Obtained From: Patient Hx Last Menstrual Period: hyster Pain Intensity: 8 - Allergy/Home Medications Allergies/Adverse Reactions: Allergies Allergy/AdvReac Type Severity Reaction Status Date / Time aspirin Allergy Swelling Verified 03/08/18 19:28 Of Face,Lips,& Throat Home Medications: Home Medications Escitalopram Oxalate [Lexapro 10 mg] mg PO DAILY 03/08/18 [History] PMH/Surg Hx/FS Hx/Imm Hx Previously Healthy: No - hpi noted. + anxiety. hx back surgery Other History Of: Negative For: HIV, Hepatitis B, Hepatitis C, Anticoagulant Therapy - Surgical History Surgical History: Yes Surgery Procedure, Year, and Place: HYSTERECTOMY-FULL. C5-6 ACDF-09/13/15. TUBES IN EARS - Family History Known Family History: Positive: Other - BREAST CA, mom and dad of AIDS Negative: Cardiac Disease, Hypertension, Diabetes - Social History Alcohol Use: None Substance Use Type: None Smoking Status (MU): Current Every Day Smoker Type: Cigarettes Amount Used/How Often: 3-5cig/day Review of Systems Constitutional: Fatigue Skin: Negative - see hpi Eyes: Negative - see hpi ENT: Negative - see hpi Respiratory: Other - see hpi Cardiovascular: Negative - see hpi Gastrointestinal: Other - see hpi Genitourinary: Negative Motor: Other - see hpi Neurovascular: Other - see hpi Musculoskeletal: Arthralgia Neurological: Other - see hpi Psychological: Anxious Is Patient Immunocompromised?: No All Other Systems Reviewed And Are Negative: Yes Physical Exam Triage Information Reviewed: Yes Appearance: Well-Appearing - sitting up, conversing easily., Thin Vital Signs: Initial Vital Signs Temp 98.1 F 03/08/18 19:26 Pulse 78 03/08/18 19:26 Resp 16 03/08/18 19:26 BP 167/109 03/08/18 19:26 Pulse Ox 100 03/08/18 19:26 Vital Signs Reviewed: Yes Eye Exam: Normal - grossly normal. NAD ENT: Positive: Pharynx normal, Other - Tm;s clear. oroph benign. ? thyroid enlargement Neck: Positive: Supple, Nontender, No Lymphadenopathy Respiratory: Positive: Chest non-tender, Lungs clear, Normal breath sounds, No respiratory distress, No accessory muscle use Cardiovascular: Positive: RRR, No Murmur, Pulses Normal, Brisk Capillary Refill Abdominal Exam: Normal, Other - no cvat Abdomen Description: Positive: Nontender Musculoskeletal Exam: Other - gait steady, moves x 4 ext's. Neurological Exam: Normal - grossly nonfocal Psychological Exam: Normal - conversing easily and appropriately. A little anxious but not inappropriately Skin Exam: Normal - no visible or reported rash Course/Dx - Course Course Of Treatment: MS. Adams reports that she has taken nsaids, including naproxen and ibuprofen without reaction or allergy (asa allergy noted). Diff dx is extensive, includes endocrine, inflamm, infectious, immunological, mechanical (ex djd). Encourage f/u with PCP (Dr. Cowart) - Ms. Adams says she will call tomorrow, and will schedule appointment. Questions as posed answered to the best of my ability. - Differential Dx - Multi-Symptom Provider Diagnoses: Arthralgia. Fatigue Discharge - Sign-Out/Discharge Documenting (check all that apply): Patient Departure All imaging exams completed and their final reports reviewed: No Studies - Discharge Plan Condition: Stable Disposition: HOME Prescriptions: Meloxicam [Mobic] 15 mg PO DAILY #30 tablet Patient Education Materials: Arthralgia (ED) Forms: *School Release Referrals: Henri Cowart MD [Primary Care Provider] - Additional Instructions: Please follow up with Dr. Cowart. Call tomorrow to schedule appointment 1-2 weeks. Please seek medical attention for worse or new problems in the meantime. Drink plenty of fluids. - Billing Disposition and Condition Condition: STABLE Disposition: Home
[2018-03-09 11:15] LABS: ABS Basophils 0.1 10^3/ul (0-0.2); ABS Eosinophils 0 10^3/ul (0-0.6); ABS Lymphocytes 2.9 10^3/ul (1.0-4.8); ABS Monocytes 0.6 10^3/ul (0-0.8); ABS Neutrophils 5.1 10^3/ul (1.5-7.7); ABS Nucleated RBC 0 10^3/ul; Eosinophil % 0.3 % (0-6); Hematocrit 38 % (35-47); Hemoglobin 12.5 g/dl (12.0-16.0); Lymphocyte % 33.7 % (25-47); Mean Corpuscular HGB Conc 33 g/dl (31-36); Mean Corpuscular Hemoglobin 29 pg (27-31); Mean Corpuscular Volume 89 fL (80-97); Mean Platelet Volume 8.9 um3 (7.4-10.4); Nucleated Red Blood Cells % 0.1; Platelet Count 257 10^3/ul (150-450); Red Blood Count 4.27 10^6/ul (4.00-5.40); Red Cell Distribution Width 13 % (10.5-15); White Blood Count 8.7 10^3/ul (3.5-10.8)
[2018-03-09 11:25] LABS: EGFR Non-African American 55.7 (>60)
--- NOTE | 2018-03-09 15:33 | UC ---
- Progress Note Progress Note: CBC and CMP unremarkable. CRP mildly elevated, but nonspecific. Lyme pending. Should f/u with PCP as advised at her OV Discharge - Sign-Out/Discharge Documenting (check all that apply): Post-Discharge Follow Up All imaging exams completed and their final reports reviewed: No Studies - Discharge Plan Condition: Stable Disposition: HOME Prescriptions: Meloxicam [Mobic] 15 mg PO DAILY #30 tablet Patient Education Materials: Arthralgia (ED) Forms: *School Release Referrals: Henri Cowart MD [Primary Care Provider] - Additional Instructions: Please follow up with Dr. Cowart. Call tomorrow to schedule appointment 1-2 weeks. Please seek medical attention for worse or new problems in the meantime. Drink plenty of fluids. - Billing Disposition and Condition Condition: STABLE Disposition: Home
== END 2018-03-08 20:59 | disposition home or self-care (01) ==
LOC: UCEAST 18:49
DX: M25.50 Pain in unspecified joint (principal); R53.83 Other fatigue; Z88.6 Allergy status to analgesic agent; F41.9 Anxiety disorder, unspecified; F17.210 Nicotine dependence, cigarettes, uncomplicated
CPT/HCPCS: 36415; 80048; 84443; 85025; 85652; 86140; 86618; 99212; G0463

== ENCOUNTER 2018-04-19 16:40 | Emergency (ER) | payer MEDICAID, OTHER ==
[2018-04-19 16:52] VITALS: BP 167/110
--- NOTE | 2018-04-19 18:02 | UC ---
Abdominal Pain Female HPI - HPI Summary HPI Summary: 47-year-old woman comes to clinic today with a chief complaint of epigastric pain. This started weeks ago. She has a history of an ulcer. She's been taking meloxicam for her arthritis and not having any problems. She recently was diagnosed with a dental infection and started on amoxicillin. When she started the amoxicillin started to bother her stomach and she started having epigastric pain and nausea and vomiting. 4 days ago she stopped both the amoxicillin and the meloxicam. She is continuing to have nausea and vomiting. She had 2 episodes of vomiting today. No report of any blood in the stool she has not had a bowel movement for 5 days. She's had decreased by mouth intake. She reports seeing brown in her emesis. Pain is a 7 out of 10 in the epigastrium. Eating makes the pain worse. - History of Current Complaint Chief Complaint: UCGI Stated Complaint: abdominal PAIN Time Seen by Provider: 04/19/18 17:40 Hx Last Menstrual Period: stoper Pain Intensity: 7 Allergies/Adverse Reactions: Allergies Allergy/AdvReac Type Severity Reaction Status Date / Time aspirin Allergy Swelling Verified 04/19/18 16:52 Of Face,Lips,& Throat Home Medications: Home Medications Amoxicillin PO (*) [Amoxicillin 875 MG (*)] 875 mg PO BID 04/19/18 [History Confirmed 04/19/18] PMH/Surg Hx/FS Hx/Imm Hx GI/ History: Ulcer Other History Of: Negative For: HIV, Hepatitis B, Hepatitis C, Anticoagulant Therapy - Surgical History Surgical History: Yes Surgery Procedure, Year, and Place: HYSTERECTOMY-FULL. C5-6 ACDF-09/13/15. TUBES IN EARS - Family History Known Family History: Positive: Other - BREAST CA, mom and dad of AIDS Negative: Cardiac Disease, Hypertension, Diabetes - Social History Alcohol Use: None Substance Use Type: None Smoking Status (MU): Former Smoker Type: Cigarettes Amount Used/How Often: 3-5cig/day Review of Systems All Other Systems Reviewed And Are Negative: Yes Constitutional: Positive: Negative Skin: Positive: Negative Eyes: Positive: Negative ENT: Positive: Negative Respiratory: Positive: Negative Cardiovascular: Positive: Negative Gastrointestinal: Positive: Abdominal Pain, Vomiting, Nausea Motor: Positive: Negative Neurovascular: Positive: Negative Musculoskeletal: Positive: Negative Neurological: Positive: Negative Psychological: Positive: Negative Is Patient Immunocompromised?: No Physical Exam Triage Information Reviewed: Yes Appearance: Well-Appearing, No Pain Distress, Well-Nourished Vital Signs: Initial Vital Signs Temp 98.7 F 04/19/18 16:44 Pulse 84 04/19/18 16:44 Resp 16 04/19/18 16:44 BP 167/110 04/19/18 16:44 Pulse Ox 100 04/19/18 16:44 Vital Signs Reviewed: Yes Eye Exam: Normal Eyes: Positive: Conjunctiva Clear ENT: Positive: Other - oral mucosa moist Neck exam: Normal Neck: Positive: Supple Respiratory: Positive: Lungs clear, Normal breath sounds, No respiratory distress Cardiovascular: Positive: RRR Abdomen Description: Positive: Soft, Other: - TENDER TO PALPATION IN THE EPIGASTRIUM. NO REBOUND.. Negative: Distended, Guarding Bowel Sounds: Positive: Present Musculoskeletal Exam: Normal Musculoskeletal: Positive: Strength Intact, ROM Intact Neurological Exam: Normal Neurological: Positive: Alert, Muscle Tone Normal Psychological Exam: Normal Psychological: Positive: Age Appropriate Behavior Skin Exam: Normal Abd Pain Female Course/Dx - Course Course Of Treatment: It sounds like the patient's also has been reactivated witH meloxicam amoxicillin. The plan now is to start treating for GERD and the vomiting. Prescription for omeprazole and Carafate and Zofran. Advance diet as tolerated. I let the patient know to not take the meloxicam and amoxicillin. Also I let her know that if she feels lightheaded the pain gets worse she has any fevers feels like she can't pass out she needs to go directly to the emergency department. - Differential Dx/Diagnosis Provider Diagnosis: Epigastric pain, Vomiting Discharge - Sign-Out/Discharge Documenting (check all that apply): Patient Departure All imaging exams completed and their final reports reviewed: No Studies - Discharge Plan Condition: Stable Disposition: HOME Prescriptions: Omeprazole CAP* [Prilosec CAP* 20 MG] 20 mg PO BID #30 cap. Ondansetron ODT TAB* [Zofran 4 MG Odt TAB*] 4 mg PO Q6H PRN #15 tab.odt PRN Reason: Nausea Sucralfate [Carafate] 1 gm PO QID #120 tablet Patient Education Materials: Epigastric Pain (ED), Peptic Ulcer (ED), Acute Nausea and Vomiting (ED) Referrals: Henri Cowart MD [Primary Care Provider] - Additional Instructions: FOLLOW UP WITH YOUR DOCTOR. GO TO THE EMERGENCY DEPARTMENT FOR ANY WORSENING OF YOUR CONDITION; PAIN, FEVER , YOU FEEL ILL, YOU FEEL LIKE PASSING OUT, BLOOD IN YOUR VOMIT OR STOOL OR QUESTIONS OR CONCERNS. - Billing Disposition and Condition Condition: STABLE Disposition: Home
== END 2018-04-19 18:19 | disposition home or self-care (01) ==
LOC: UCEAST 16:40
DX: R10.13 Epigastric pain (principal); R11.10 Vomiting, unspecified; M19.90 Unspecified osteoarthritis, unspecified site; Z88.6 Allergy status to analgesic agent; Z87.891 Personal history of nicotine dependence
CPT/HCPCS: 99212; G0463

== ENCOUNTER 2018-09-18 14:48 | Emergency (ER) | payer MEDICAID, OTHER ==
[2018-09-18 15:21] VITALS: BP 172/95
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
[2018-09-18] MEDS ORDERED: Dexamethasone IV* 4 MG/ML 1 ML (4 MG) IM ONE (15:24)
[2018-09-18] MEDS ORDERED: Ketorolac INJ* 60 MG/2 ML VIAL IM ONE (15:24)
== END 2018-09-18 16:35 | disposition home or self-care (01) ==
LOC: UCEAST 14:48
DX: M54.2 Cervicalgia (principal); Z88.8 Allergy status to other drugs, medicaments and biological substances; Z87.891 Personal history of nicotine dependence
CPT/HCPCS: 72125; 96372; 99211; G0463; J1100; J1885

== ENCOUNTER → 2018-10-03 14:06 | Emergency (ER) | payer OTHER ==
[~2018-10-03 14:06] MED LIST: Clindamycin CAP* 150 MG PO ONE
--- NOTE | 2018-10-03 14:55 | ED ---
Throat Pain/Nasal Congestion - HPI Summary HPI Summary: 48-year-old female presents with dental pain for the past 4 days. She states she's had increased swelling to her right upper jaw that has been worsening. Denies any pain or swelling around her eyes. she denies any pain with eye movement. Denies any fevers. No chest pain or shortness of breath. She states she had 4 teeth pulled last month but they did not want to remove this tooth. She hasn't taken anything for pain. She is in pretty severe pain but cannot take aspirin or ibuprofen. - History of Current Complaint Chief Complaint: EDDentalPain Time Seen by Provider: 10/03/18 14:36 - Allergies/Home Medications Allergies/Adverse Reactions: Allergies Allergy/AdvReac Type Severity Reaction Status Date / Time aspirin Allergy Swelling Verified 09/18/18 15:21 Of Face,Lips,& Throat ibuprofen Allergy GI Upset Verified 09/18/18 15:21 PMH/Surg Hx/FS Hx/Imm Hx Endocrine/Hematology History: Denies: Hx Anticoagulant Therapy, Hx Blood Disorders, Hx Diabetes, Hx Thyroid Disease, Hx Unexplained Bleeding Cardiovascular History: Reports: Hx Hypertension Denies: Hx Congestive Heart Failure, Hx Deep Vein Thrombosis, Hx Myocardial Infarction, Hx Pacemaker/ICD Respiratory History: Denies: Hx Asthma, Hx Chronic Obstructive Pulmonary Disease (COPD), Hx Lung Cancer, Hx Pneumonia, Hx Pulmonary Embolism GI History: Denies: Hx Gall Bladder Disease, Hx Gastrointestinal Bleed, Hx Ulcer, Hx Urosepsis History: Denies: Hx Kidney Stones, Hx Renal Disease Musculoskeletal History: Reports: Hx Arthritis Neurological History: Denies: Hx Dementia, Hx Migraine, Hx Seizures, Hx Transient Ischemic Attacks (TIA) Psychiatric History: Reports: Hx Anxiety - She takes a, Hx Depression - She is not on medications for her mental health issues> Denies: Hx Schizophrenia, Hx Bipolar Disorder, Hx of Violent Episodes Against Others - Surgical History Surgery Procedure, Year, and Place: HYSTERECTOMY-FULL. C5-6 ACDF-09/13/15. TUBES IN EARS Infectious Disease History: No Infectious Disease History: Reports: Hx Hepatitis - hep B - 26 years ago, History Other Infectious Disease - herpes Denies: Traveled Outside the [place] in Last 30 Days - Family History Known Family History: Positive: Other - BREAST CA, mom and dad of AIDS Negative: Cardiac Disease, Hypertension, Diabetes - Social History Alcohol Use: None Hx Substance Use: No Substance Use Type: Reports: None Hx Tobacco Use: Yes Smoking Status (MU): Former Smoker Type: Cigarettes Amount Used/How Often: 3-5cig/day Review of Systems Negative: Fever Positive: Dental Pain Negative: Chest Pain Negative: Shortness Of Breath All Other Systems Reviewed And Are Negative: Yes Physical Exam Triage Information Reviewed: Yes Vital Signs On Initial Exam: Initial Vitals Temp Pulse Resp BP Pulse Ox 98.6 F 73 18 170/94 97 10/03/18 14:19 10/03/18 14:19 10/03/18 14:19 10/03/18 14:19 10/03/18 14:19 Vital Signs Reviewed: Yes Appearance: Positive: Well-Appearing Skin: Positive: Warm, Dry Head/Face: Positive: Normal Head/Face Inspection, Other - swelling to right upper jaw Eyes: Positive: Normal, EOMI, RADHA, Conjunctiva Clear ENT: Positive: Pharynx normal, TMs normal Dental: Positive: Other - swelling above right upper tooth Neck: Positive: Supple, Nontender, No Lymphadenopathy Respiratory/Lung Sounds: Positive: Clear to Auscultation, Breath Sounds Present Cardiovascular: Positive: Normal, RRR Musculoskeletal: Positive: Normal Neurological: Positive: Normal Psychiatric: Positive: Normal Diagnostics - Vital Signs Vital Signs Temp Pulse Resp BP Pulse Ox 10/03/18 14:19 98.6 F 73 18 170/94 97 - Laboratory Lab Statement: Any lab studies that have been ordered have been reviewed, and results considered in the medical decision making process. EENT Course/Dx - Course Course Of Treatment: 48-year-old female presents with dental pain for the past 4 days. She states she's had increased swelling to her right upper jaw that has been worsening. Denies any pain or swelling around her eyes. she denies any pain with eye movement. Denies any fevers. No chest pain or shortness of breath. She states she had 4 teeth pulled last month but they did not want to remove this tooth. She hasn't taken anything for pain. She is in pretty severe pain but cannot take aspirin or ibuprofen. On exam has some edema to right cheek. Has swelling above tooth 5. Induration noted but no fluctuance. will place on clindamycin. Given a short course pain medication. Patient understands agrees with plan. - Differential Diagnoses Differential Diagnoses: Dental Abscess, Dental Caries, Fractured Tooth - Diagnoses Provider Diagnoses: Dental abscess Discharge - Sign-Out/Discharge Documenting (check all that apply): Patient Departure Patient Received Moderate/Deep Sedation with Procedure: No - Discharge Plan Condition: Good Disposition: HOME Prescriptions: Clindamycin Cap(NF) [Clindamycin Cap 300 mg Cap(NF)] 300 mg PO TID #20 cap traMADol TAB* [Ultram*] 50 mg PO Q8H PRN #6 tab MDD 3 PRN Reason: Pain Patient Education Materials: Dental Abscess (ED) Referrals: Henri Cowart MD [Primary Care Provider] - Additional Instructions: Take clindamycin three times a day for 7 days Take tyenlol every 6 hours for pain as needed, use tramadol as needed for pain every 8 hours for break through pain Avoid hard, crunchy food until seen by dentist Return to ED if develop fever or any new or worsening symptoms follow up with dentist as soon as possible - Billing Disposition and Condition Condition: GOOD Disposition: Home Images - Images Dental: 1 - swelling above tooth
[2018-10-03 15:22] VITALS: BP 0/0
== END | disposition home or self-care (01) ==
LOC: ED 14:06
DX: K04.7 Periapical abscess without sinus (principal); I10 Essential (primary) hypertension; M19.90 Unspecified osteoarthritis, unspecified site; F41.9 Anxiety disorder, unspecified; F32.9 Major depressive disorder, single episode, unspecified; Z79.899 Other long term (current) drug therapy; Z88.6 Allergy status to analgesic agent; Z87.891 Personal history of nicotine dependence
CPT/HCPCS: 99282; A9270-GY

== ENCOUNTER 2019-05-18 17:57 | Emergency (ER) | payer MEDICAID, OTHER ==
[2019-05-18 18:11] VITALS: BP 162/102
--- NOTE | 2019-05-18 18:34 | UC ---
Throat Pain/Nasal Heriberto HPI - HPI Summary HPI Summary: sore throat for 4 days no fever no cough grandchild has a cold - History of Current Complaint Chief Complaint: UCRespiratory Stated Complaint: SORE THROAT, AND EAR ACHE Time Seen by Provider: 05/18/19 18:28 Hx Obtained From: Patient Hx Last Menstrual Period: 2008 ?: No Onset/Duration: Sudden Onset, Lasting Days - 4, Still Present Pain Intensity: 8 Pain Scale Used: 0-10 Numeric Cough: None Associated Signs & Symptoms: Positive: Negative - Allergies/Home Medications Allergies/Adverse Reactions: Allergies Allergy/AdvReac Type Severity Reaction Status Date / Time aspirin Allergy Swelling Verified 05/18/19 18:11 Of Face,Lips,& Throat ibuprofen Allergy GI Upset Verified 05/18/19 18:11 PMH/Surg Hx/FS Hx/Imm Hx Previously Healthy: No Cardiovascular History: Hypertension Other History Of: Negative For: HIV, Hepatitis B, Hepatitis C, Anticoagulant Therapy - Surgical History Surgical History: Yes Surgery Procedure, Year, and Place: HYSTERECTOMY-FULL. C5-6 ACDF-09/13/15. TUBES IN EARS - Family History Known Family History: Positive: Other - BREAST CA, mom and dad of AIDS Negative: Cardiac Disease, Hypertension, Diabetes - Social History Occupation: Works From/At Home Lives: With Family Alcohol Use: Occasionally Substance Use Type: None Smoking Status (MU): Former Smoker Type: Cigarettes Amount Used/How Often: 3-5cig/day Review of Systems All Other Systems Reviewed And Are Negative: Yes Constitutional: Positive: Negative Skin: Positive: Negative Eyes: Positive: Negative ENT: Positive: Sore Throat Respiratory: Positive: Negative Cardiovascular: Positive: Negative Gastrointestinal: Positive: Negative Genitourinary: Positive: Negative Motor: Positive: Negative Neurovascular: Positive: Negative Musculoskeletal: Positive: Negative Neurological: Positive: Negative Psychological: Positive: Negative Is Patient Immunocompromised?: No Physical Exam Triage Information Reviewed: Yes Appearance: Well-Appearing, No Pain Distress, Well-Nourished Vital Signs: Initial Vital Signs Temp 98.1 F 05/18/19 18:04 Pulse 102 05/18/19 18:04 Resp 18 05/18/19 18:04 BP 162/102 05/18/19 18:04 Pulse Ox 100 05/18/19 18:04 Vital Signs Reviewed: Yes Eye Exam: Normal Eyes: Positive: Conjunctiva Clear ENT Exam: Normal ENT: Positive: Normal ENT inspection, Hearing grossly normal, Pharynx normal, TMs normal, Uvula midline. Negative: Nasal congestion, Tonsillar swelling, Tonsillar exudate, Trismus, Muffled voice, Hoarse voice, Sinus tenderness Dental Exam: Normal Neck exam: Normal Neck: Positive: Supple, Nontender, No Lymphadenopathy Respiratory Exam: Normal Respiratory: Positive: Chest non-tender, Lungs clear, Normal breath sounds, No respiratory distress, No accessory muscle use Cardiovascular Exam: Normal Cardiovascular: Positive: RRR, No Murmur, Pulses Normal, Brisk Capillary Refill Musculoskeletal Exam: Normal Musculoskeletal: Positive: Strength Intact, ROM Intact, No Edema Neurological Exam: Normal Neurological: Positive: Alert, Muscle Tone Normal Psychological Exam: Normal Skin Exam: Normal Diagnostics - Laboratory Lab Results: RST - Throat Pain/Nasal Course/Dx - Course Course Of Treatment: increase fluids, tylenol/ibuprofen for pain gargle follow with pcp as planned for bp care - Differential Dx/Diagnosis Provider Diagnosis: Hypertension, Viral respiratory illness Discharge ED - Sign-Out/Discharge Documenting (check all that apply): Patient Departure All imaging exams completed and their final reports reviewed: No Studies - Discharge Plan Condition: Stable Disposition: HOME Prescriptions: Ibuprofen TAB* [Motrin TAB* 600 MG] 600 mg PO Q8H PRN #30 tab PRN Reason: pain/swelling Patient Education Materials: Pharyngitis (ED), Viral Syndrome (ED), Hypertension (ED) Referrals: Henri Cowart MD [Primary Care Provider] - 06/15/19 - Billing Disposition and Condition Condition: STABLE Disposition: Home - Attestation Statements Provider Attestation: I was available for consult. This patient was seen by the [facility]. The patient was not presented to, seen by, or examined by me. -Martha
== END 2019-05-18 18:48 | disposition home or self-care (01) ==
LOC: UCEAST 17:57
DX: B34.9 Viral infection, unspecified (principal); I10 Essential (primary) hypertension; J02.9 Acute pharyngitis, unspecified; Z88.6 Allergy status to analgesic agent; Z87.891 Personal history of nicotine dependence
CPT/HCPCS: 87651; 99212; G0463